=== PATIENT | male | born 1985 | race Caucasian/White ===

== ENCOUNTER 2019-01-08 22:34 | Emergency (ER) | payer OTHER ==
[~2019-01-08] VITALS: Ht 182.9 cm; Wt 133.8 kg
[~2019-01-08 22:34] MED LIST: ABILIFY; ACEASPCAF PO; ACET325 PO; ACET500 PO; ARIP10 PO; Benadryl 50 mg50 MG PO; CEPH250A PO; CYCL10 PO; DOXY100 PO; EPIN.3I IM; GABA300 PO; HYDACE5 PO; HYDACE5325 PO; Inderal 20 mg T20 MG PO; METPRE4DP PO; NAPR550 PO; Norco 10-325 T1 EACH PO; Norco 5-325 Ta1 EACH PO; PENVK500 PO; PROP10; Percocet 5-3251 EACH PO; RXNAPNA550 PO; SACC250C PO; Vibramycin100 MG PO
[2019-01-09] MEDS ORDERED: CEPH500 PO ×2 (00:43→00:52)
[2019-01-09] MEDS ORDERED: Prednisone50 MG PO ×2 (00:43→00:52)
[2019-01-09] MEDS ORDERED: Vibramycin100 MG PO ×2 (00:43→00:52)
== END 2019-01-09 01:03 | disposition home or self-care (01) ==
LOC: ER 22:34
DX: S30.861A Insect bite (nonvenomous) of abdominal wall, initial encounter (principal); L03.311 Cellulitis of abdominal wall; W57.XXXA Bitten or stung by nonvenomous insect and other nonvenomous arthropods, initial encounter; Z88.8 Allergy status to other drugs, medicaments and biological substances; Z88.1 Allergy status to other antibiotic agents; Z88.5 Allergy status to narcotic agent; Z91.030 Bee allergy status; Z79.899 Other long term (current) drug therapy; Z87.891 Personal history of nicotine dependence
CPT/HCPCS: 99281; J1100

== ENCOUNTER 2019-06-13 11:57 | Emergency (ER) | payer OTHER ==
[~2019-06-13] VITALS: Ht 182.9 cm; Wt 131.5 kg
[~2019-06-13 11:57] MED LIST changes: +CEPH500 PO; +Prednisone50 MG PO
[2019-06-13] MEDS ORDERED: Percocet 7.5-31 EACH PO (14:01)
== END 2019-06-13 14:38 | disposition home or self-care (01) ==
LOC: ER 11:57
DX: M70.41 Prepatellar bursitis, right knee (principal); M25.551 Pain in right hip; M25.461 Effusion, right knee; Z87.891 Personal history of nicotine dependence; Z88.8 Allergy status to other drugs, medicaments and biological substances; Z88.1 Allergy status to other antibiotic agents; Z91.030 Bee allergy status; Z88.5 Allergy status to narcotic agent; Z79.899 Other long term (current) drug therapy; Z79.52 Long term (current) use of systemic steroids
CPT/HCPCS: 73502; 73562-RT; 99283-25

== ENCOUNTER 2019-06-15 22:50 | Inpatient (IN) | payer OTHER ==
[~2019-06-15] VITALS: Ht 182.9 cm; Wt 136.5 kg
[~2019-06-15 22:50] MED LIST changes: +Percocet 7.5-31 EACH PO
[2019-06-15 23:58] LABS: BASOPHILS ABSOLUTE AUTO 0.04 K/mm3 (0.00-0.23); BASOPHILS PERCENT AUTO 0 % (0-2); EOSINOPHILS ABSOLUTE AUTO 0.17 K/mm3 (0.00-0.68); EOSINOPHILS PERCENT AUTO 2 % (0-6); Hemoglobin 14.1 g/dL (13.5-17.5); IMMATURE GRAN PERCENT AUTO 1 % (0-1); LYMPHOCYTES ABSOLUTE AUTO 1.44 K/mm3 (0.84-5.20); LYMPHOCYTES PERCENT AUTO 13 % (21-46); MONOCYTES ABSOLUTE AUTO 0.75 K/mm3 (0.16-1.47); MONOCYTES PERCENT AUTO 7 % (4-13); Mean Corpuscular HGB 31.8 pg (26.0-34.0); Mean Corpuscular HGB Conc 33.6 g/dL (31.5-36.5); Mean Corpuscular Volume 95 fL (80-100); Mean Platelet Volume 10.3 fL (9.1-12.4); NEUTROPHILS ABSOLUTE AUTO 8.83 K/mm3 (1.96-9.15); NEUTROPHILS PERCENT AUTO 78 % (41-73); Platelet Count 187 K/mm3 (150-400); RDW Coefficient Variation 11.9 % (11.7-14.2); RDW Standard Deviation 41.3 fL (35.1-46.3); Red Blood Cell Count 4.44 M/mm3 (4.30-5.90); White Blood Cell Count 11.33 K/mm3 (4.00-11.30)
[2019-06-16 00:12] LABS: Anion Gap 6 mmol/L (6-16); Blood Urea Nitrogen 8 mg/dL (8-24); Bun/Creatinine Ratio 9.9 (12.0-20.0); CO2, Blood 26 mmol/L (21-32); Chloride, Blood 104 mmol/L (98-108); Creatinine, Blood 0.81 mg/dL (0.60-1.20); Glomerular Filtration Rate >60 (60-); Glucose, Blood 120 mg/dL (70-99); Potassium, Blood 3.8 mmol/L (3.5-5.5); Sodium, Blood 136 mmol/L (136-145)
--- NOTE | 2019-06-16 02:37 | NUR ---
ADMISSION: PATIENT IS RECIEVED VIA STRETCHER, BP IS ELEVATED, PATIENT IS ASYMPTOMATIC. REPORTING R KNEE PAIN 7/10. PATIENT IS ORIENTED TO ROOM AND CALL CASTRO.
[2019-06-16 04:38] LABS: Hematocrit 38.6 % (37.0-53.0); Hemoglobin 12.9 g/dL (13.5-17.5); Mean Corpuscular HGB 31.2 pg (26.0-34.0); Mean Corpuscular HGB Conc 33.4 g/dL (31.5-36.5); Mean Corpuscular Volume 93 fL (80-100); Mean Platelet Volume 10.4 fL (9.1-12.4); Platelet Count 183 K/mm3 (150-400); RDW Coefficient Variation 11.9 % (11.7-14.2); RDW Standard Deviation 41.1 fL (35.1-46.3); Red Blood Cell Count 4.14 M/mm3 (4.30-5.90); White Blood Cell Count 10.65 K/mm3 (4.00-11.30)
[2019-06-16 05:01] LABS: Alanine Aminotransfer (ALT/SGP 300 U/L (12-78); Albumin, Blood 3.1 g/dL (3.4-5.0); Albumin/Globulin Ratio 0.8 (0.8-1.8); Alk Phos 99 U/L (50-136); Anion Gap 9 mmol/L (6-16); Aspartate Aminotrans (AST/SGOT 121 U/L (12-37); Bilirubin, Total 1.2 mg/dL (0.1-1.0); Blood Urea Nitrogen 7 mg/dL (8-24); Bun/Creatinine Ratio 9.2 (12.0-20.0); CO2, Blood 24 mmol/L (21-32); Calcium, Blood 8.5 mg/dL (8.5-10.1); Chloride, Blood 104 mmol/L (98-108); Creatinine, Blood 0.76 mg/dL (0.60-1.20); Glomerular Filtration Rate >60 (60-); Glucose, Blood 113 mg/dL (70-99); Potassium, Blood 3.6 mmol/L (3.5-5.5); Sodium, Blood 137 mmol/L (136-145); Total Protein, Blood 7.1 g/dL (6.4-8.2)
--- NOTE | 2019-06-16 05:34 | NUR ---
SHIFT SUMMARY; PATIENT HAS SPIKED A TEMP. OF 101.8, REPORTING PAIN IN R KNEE 5/[address] HEBERT IS NOTIFIED AND ORDERS ARE OBTAINED TO GIVEN DILAUDID 1MG IV NOW, MONITOR TEMP., TYLENOL WAS ALREADY GIVEN.
--- NOTE | 2019-06-16 06:28 | NUR ---
TEMPRATURE: RECHECK ON TEMP. IS 100.8. PATIENT REPORTS FEELING "A LOT BETTER", AFTER THE IV DILAUDID, RATING PAIN AT 2/10. ICE THERAPY AND ELEVATION ARE ALSO UTILIZED.
--- NOTE | 2019-06-16 15:05 | NUR ---
06/16/19 1505 Kari Romero PT ON SCHEDULED ANTIBIOTICS
--- NOTE | 2019-06-16 16:57 | NUR ---
PT RETURNED FORM SURGICAL AND HAS RECOVERED WELL. AOX4 AND COOPERATIVE OF CARE. PT DENIES PAIN AT THIS TIME. TREATED FOR PAIN EARLIER X2 PER EMAR. NO NAUSEA REPORTED. PT HAS DONE WELL TO TRANSFER WITH WALKER AND STANDBY ASSIST TO RESTROOM. NO DISTRESS NOTED WILL CONTINUE TO MONITOR.
--- NOTE | 2019-06-17 07:25 | NUR ---
SHIFT SUMMARY: PATIENT IS A&OX4, PAIN IS WELL CONTROLED WITH OXYCODONE, TYLENOL AND 1 DOSE OF FENTANYL FOR BREAKTHROUGH PAIN. ICE IS ALSO UTILIZED AND HAS BEEN EFFECTIVE, VS ARE STABLE. ABLE TO STAND AT THE BEDSIDE TO VOID WITH MINIMAL ASSIST GETTING OOB.
[2019-06-17] MEDS ORDERED: CEPH500 PO (11:35)
--- NOTE | 2019-06-17 13:04 | NUR ---
PT AOX4 AND COOPERATIVE OF CARE. PT TREATED FOR PAIN X1 PER EMAR PRIOR TO DISCHARGE. PT DISCHARGE AT 1230 WITH TO TRANSPORT. EDUCTION ON HOW TO EMPTY EBONIE DRAIN WAS GIVEN TO BOTH THE PT AND HIS . ALL PAPERS REVEIWED.DR DUBOSE CALLED AND STATED HIS OFFICE IS TO CALL WITH APPOINTMENT FOR THIS FOLLOWING MONDAY. EDUCATIONAL MATERIAL WAS ALSO SENT. MEDICAITONS FAXED TO [facility] ON [address]. PERSONAL BELONGINGS WENT WITH PT. THIS CLUB CAR ATTENDANT ESCORTED PT OUT TO S ENTRANCE FOR RIDE. NO DISTRESS NOTED.
== END 2019-06-17 12:27 | disposition home or self-care (01) | DRG 501 ==
LOC: ER 22:50 → MEDS 22:51 → SURS 22:51 → MEDS 06-16 02:23 → ENPENDDIS 06-17 10:24 → MEDS 06-17 12:27
PROVIDERS: Orthopaedic Surgery; Physician Assistant; ADMIT Internal Medicine
PROC: 0MDN0ZZ Extraction of Right Knee Bursa and Ligament, Open Approach (ICD-10-PCS; principal; 2019-06-16 12:15)
DX: M70.41 Prepatellar bursitis, right knee (principal); L03.115 Cellulitis of right lower limb; S81.011A Laceration without foreign body, right knee, initial encounter; Z87.891 Personal history of nicotine dependence; W18.30XA Fall on same level, unspecified, initial encounter; Y92.9 Unspecified place or not applicable; I10 Essential (primary) hypertension; E66.01 Morbid (severe) obesity due to excess calories; Z68.35 Body mass index [BMI] 35.0-35.9, adult; F41.1 Generalized anxiety disorder
CPT/HCPCS: 36415; 73700; 73701; 80048; 80053; 83605; 85025; 85027; 85651; 86140; 87070; 87075; 87077; 87147; 87186; 87205; 96365; 96368; 96375; 97116; 97161; 97530; 99285-25; A9270; A9270-GY; J0690; J0696; J0878; J1100; J1170; J1650; J1885; J2405; J3010; J7030; J7120

== ENCOUNTER 2023-07-31 21:25 | Observation (INO) | payer SELFPAY ==
[~2023-07-31] VITALS: Ht 180.3 cm; Wt 117.0 kg
[2023-07-31] MEDS ORDERED: PROP10 PO (21:43)
[2023-07-31 21:52] LABS: BASOPHILS ABSOLUTE AUTO 0.06 K/mm3 (0.00-0.23); BASOPHILS PERCENT AUTO 1 % (0-2); EOSINOPHILS ABSOLUTE AUTO 0.16 K/mm3 (0.00-0.68); EOSINOPHILS PERCENT AUTO 2 % (0-6); Hematocrit 43.3 % (37.0-53.0); Hemoglobin 15.2 g/dL (13.5-17.5); IMMATURE GRAN ABSOLUTE AUTO 0.04 K/mm3 (0.00-0.10); IMMATURE GRAN PERCENT AUTO 1 % (0-1); LYMPHOCYTES ABSOLUTE AUTO 2.57 K/mm3 (0.84-5.20); LYMPHOCYTES PERCENT AUTO 32 % (21-46); MONOCYTES ABSOLUTE AUTO 0.52 K/mm3 (0.16-1.47); MONOCYTES PERCENT AUTO 6 % (4-13); Mean Corpuscular HGB 31.9 pg (26.0-34.0); Mean Corpuscular HGB Conc 35.1 g/dL (31.5-36.5); Mean Corpuscular Volume 91 fL (80-100); Mean Platelet Volume 9.6 fL (9.1-12.4); NEUTROPHILS ABSOLUTE AUTO 4.76 K/mm3 (1.96-9.15); NEUTROPHILS PERCENT AUTO 59 % (41-73); Platelet Count 210 K/mm3 (150-400); RDW Coefficient Variation 12.2 % (11.7-14.2); RDW Standard Deviation 40.7 fL (35.1-46.3); Red Blood Cell Count 4.76 M/mm3 (4.30-5.90); White Blood Cell Count 8.11 K/mm3 (4.00-11.30)
[2023-07-31 22:06] LABS: Prothrombin Time Results 10.5 Sec (9.7-11.5)
[2023-07-31 22:07] LABS: Albumin, Blood 4.2 g/dL (3.4-5.0); Albumin/Globulin Ratio 1.2 (0.8-1.8); Bilirubin, Total 0.5 mg/dL (0.1-1.0); Bun/Creatinine Ratio 15.9 (12.0-20.0); Calcium, Blood 8.4 mg/dL (8.5-10.1); Creatinine, Blood 0.63 mg/dL (0.60-1.20); Globulin, Blood 3.5 g/dL (2.2-4.0); Potassium, Blood 3.3 mmol/L (3.5-5.5); Total Protein, Blood 7.7 g/dL (6.4-8.2)
[2023-08-01 04:11] VITALS: BP 141/85
--- NOTE | 2023-08-01 04:57 | NUR ---
PT ARRIVED TO ROOM 210 FROM ER. PT TX SELF FROM [facility] TO BED. LEFT THIGH SWOLLEN, SOFT TO PALP, DRESSING CDI. PULSES STRONG, CAP REFILL WNL. PT DENIES N/T/CHANGES IN SENSATION. PT REP PAIN 01/21. PT ORIENTED TO ROOM/CALL LIGHT. PT NPO AWAITING DIET ORDERS. PT REQ TO BE MADE CONFIDENTIAL STATUS. ADMITTING UPDATED.
--- NOTE | 2023-08-01 07:35 | NUR ---
PT HAD NO CHANGES SINCE ARRIVING TO FLOOR. DRESSING REMAINS CDI, L THIGH SOFT TO PALP. PULSES STRONG, PT DENIED CHANGES IN SENSATION. PAIN MGD PER EMAR W/MINIMAL RELIEF, NEW ORDERS REC THIS AM.
[2023-08-01 07:49] VITALS: BP 145/83
[2023-08-01] MEDS ORDERED: Norco 5-325 Ta1 EACH PO (10:29)
--- NOTE | 2023-08-01 12:21 | NUR ---
DISCHARGE SUMMARY PT A&OX4, VSS/RA, LIONEL PO, VOIDING, AMB INDEPENDENTLY TO BRP/DRESSED SELF, PAIN MANAGED, IV DC'D, DRESSING CHANGED. DC INS PROVIDED. PT REP UNDERSTANDING THOSE INSTRUCTIONS INCLUDING DRESSING CHANGES AND SHOWER/CLEANING WOUNDS. LEFT FLOOR VIA WC WITH RADIOGRAPHIC TECHNOLOGIST TO GO HOME WITH FRIEND, WITH ALL PERSONAL POSSESSIONS INCLUDING DC PACKET AND 1 NARC SCRIPT.
== END 2023-08-01 11:47 | disposition home or self-care (01) ==
LOC: ER 21:25 → SURS 21:26 → MEDS 21:26 → SURS 08-01 03:51
PROVIDERS: Student in an Organized Health Care Education/Training Program; ADMIT Surgery
DX: S71.132A Puncture wound without foreign body, left thigh, initial encounter (principal); Z88.5 Allergy status to narcotic agent; Z88.8 Allergy status to other drugs, medicaments and biological substances; W32.0XXA Accidental handgun discharge, initial encounter; Y92.008 Other place in unspecified non-institutional (private) residence as the place of occurrence of the external cause
CPT/HCPCS: 73552; 73706; 80053; 85025; 85610; 90471; 90714; 90715; 96365; 96375; 99285-25; A9270; G0378; J0690; J2060; Q9967